=== PATIENT | female | born 1965 | race Caucasian/White ===

== ENCOUNTER 2018-09-10 12:25 | Emergency (ER) | payer BC ==
[~2018-09-10] VITALS: Ht 167.6 cm; Wt 123.8 kg
[2018-09-10 14:00] VITALS: BP 144/82
== END 2018-09-10 14:00 | disposition home or self-care (01) ==
LOC: ED 12:25
DX: B02.22 Postherpetic trigeminal neuralgia (principal); I10 Essential (primary) hypertension; Z98.890 Other specified postprocedural states; Z88.0 Allergy status to penicillin